=== PATIENT | male | born 1945 | race Caucasian/White ===

== ENCOUNTER 2024-09-21 08:21 | Outpatient (CLI) | payer MEDICARE, OTHER | END 2024-09-21 08:22 | disposition home or self-care (01) | LOC: CSHSLEEP 08:21 | PROVIDERS: ATTEND Internal Medicine Critical Care Medicine | DX: G47.33 Obstructive sleep apnea (adult) (pediatric) (principal); I11.9 Hypertensive heart disease without heart failure | CPT/HCPCS: 95801 ==